=== PATIENT | male | born 1950 | race Caucasian/White ===

== ENCOUNTER 2021-06-12 09:00 | Outpatient (CLI) | payer MEDICARE ==
[~2021-06-12] VITALS: Ht 175.3 cm; Wt 106.6 kg
[2021-06-12] MEDS ORDERED: ASPI81TA52 PO (11:24)
[2021-06-12] MEDS ORDERED: FINA5TAB12 PO (11:24)
[2021-06-12] MEDS ORDERED: GEMF600T89 PO (11:24)
[2021-06-12] MEDS ORDERED: FLO0.4C PO (11:24)
[2021-06-12] MEDS ORDERED: SENN-93 PO (11:24)
[2021-06-12] MEDS ORDERED: ATOR40TA72 PO (11:24)
[2021-06-12] MEDS ORDERED: METF-1203 PO (11:24)
[2021-06-12] MEDS ORDERED: GABA300C PO (11:24)
[2021-06-12] MEDS ORDERED: OMEP20TA43 PO (11:24)
[2021-06-12] MEDS ORDERED: METO-395 PO (11:24)
[2021-06-12] MEDS ORDERED: TRIA1CAP6 PO (11:24)
[2021-06-12] MEDS ORDERED: LOSA50TA64 PO (11:24)
[2021-06-12 11:53] LABS: BASOPHILS % (AUTO) 0.5 % (0-1); EOSINOPHILS # (AUTO) 0.1 X10'3 (0-0.9); EOSINOPHILS % (AUTO) 2.4 % (0-6); LYMPHOCYTES # (AUTO) 1.5 X10'3 (1.1-4.8); LYMPHOCYTES % (AUTO) 24.8 % (21-51); MEAN CORPUSCULAR HGB CONC 33.7 g/dL (33.0-36.5); MEAN CORPUSCULAR VOLUME 92.1 FL (78-98); MEAN PLATELET VOLUME 9.4 FL (7.4-10.4); MONOCYTES # (AUTO) 0.6 X10'3 (0-0.9); NEUTROPHILS # (AUTO) 3.9 X10'3 (1.8-7.7); NEUTROPHILS % (AUTO) 63.3 % (42-75); PRE OP HEMATOCRIT 48.6 % (42.0-52.0); PRE OP HEMOGLOBIN 16.4 g/dL (14.0-17.9); PRE OP PLATELET COUNT 204 X10'3 (140-440); RED BLOOD COUNT 5.27 X10'6 (4.70-6.10)
[2021-06-12 12:05] LABS: PRE OP INR 1.1 INR; PRE OP PROTIME 11.1 SECONDS (9.0-12.0)
[2021-06-12 12:10] LABS: ALBUMIN 3.9 G/DL (3.4-5.0); ALBUMIN/GLOBULIN RATIO 1.3 (1.1-1.5); ALKALINE PHOSPHATASE 70 IU/L (46-116); BLOOD UREA NITROGEN 22 MG/DL (7-18); BUN/CREATININE RATIO 18.3 (5.4-32.0); CALCIUM 8.9 MG/DL (8.5-10.1); CHLORIDE 107 MMOL/L (99-107); PRE OP ALT 55 U/L (30-65); PRE OP ANION GAP 10 (8-16); PRE OP AST 30 U/L (10-37); PRE OP BILIRUB, TOTAL 0.5 MG/DL (0.0-1.0); PRE OP GLUCOSE 120 MG/DL (70-104); PRE OP SODIUM 141 MMOL/L (135-145); TOTAL CARBON DIOXIDE 23.7 MMOL/L (24-32); TOTAL PROTEIN 6.9 G/DL (6.4-8.2); eGFR 60 ML/MIN
[2021-06-18] MEDS ORDERED: ringers solution, lacted 1,000 ML IV SCH (05:00)
[2021-06-18] MEDS ORDERED: famotidine 20mg tablet PO ONE (05:30)
[2021-06-18] MEDS ORDERED: DOCUMENT DATE & TIME OF BETA-BLOCKER PO ONE (05:30)
[2021-06-18] MEDS ORDERED: diazepam 5mg tablet PO ONE (05:30)
[2021-06-18] MEDS ORDERED: oxymetazoline 15 ML nasal spray NS PRN (05:30)
[2021-06-18] MEDS ORDERED: cocaine 4% topical solution 4ml bottle ONE (07:13)
[2021-06-18] MEDS ORDERED: LIDOcaine 1% W/epiNEPHrine 1:100,000 20ml vial ONE (07:13)
[2021-06-18] MEDS ORDERED: oxymetazoline 15 ML nasal spray NS ONE (07:14)
[2021-06-18] MEDS ORDERED: mupirocin 2% ointment 22GM ONE (07:14)
--- NOTE | 2021-06-18 07:50 | NUR ---
PATIENT AND HIS CAME TO [facility]. DR ZAMBRANO MET WITH THE PATIENT AND DISCUSSED HIS CARDIAC HX. DR ZAMBRANO TRIED TO REACH DR ARMENTA REGARDING A MEDICAL CLEARANCE. DR ARMENTA WAS NOT ABLE TO BE REACHED. DR ZAMBRANO CANCELED THE PATIENTS SURGERY UNTIL HE CAN GET A CARDIAC CLEARANCE. PATIENT STAYED IN HIS WHEELCHAIR CLOTHED AND WAS NOT ASSESSED. THE PATIENT AND HIS WERE EDUCATED ON THE SITUATION AND I HELPED THEM BACK TO THEIR CAR.
== END 2021-06-12 23:00 | disposition home or self-care (01) ==
LOC: LAB 09:00 → PAS 06-18 07:38 → EDSTATUS 06-18 08:00 → PAS 06-18 09:00
PROVIDERS: ATTEND Otolaryngology
DX: Z01.812 Encounter for preprocedural laboratory examination (principal); Z20.822 Contact with and (suspected) exposure to COVID-19
CPT/HCPCS: 36415; 80053; 85025; 85576; 85610; 85730; 93005; U0003; U0005; J7120

== ENCOUNTER 2021-07-31 05:22 | Day surgery (SDC) | payer MEDICARE ==
[~2021-07-31] VITALS: Ht 175.3 cm; Wt 103.8 kg
[2021-07-31] VITALS (14 sets, daily range): BP systolic 129–178; BP diastolic 48–98
[~2021-07-31 05:22] MED LIST: ASPI81TA52 PO; ATOR40TA72 PO; FINA5TAB12 PO; FLO0.4C PO; GABA300C PO; GEMF600T89 PO; LOSA50TA64 PO; METF-1203 PO; METO-395 PO; OMEP20TA43 PO; SENN-93 PO; TRIA1CAP6 PO
[2021-07-31] MEDS ORDERED: NAPR220T67 PO (06:22)
[2021-07-31] MEDS ORDERED: Allergy (06:22)
[2021-07-31] MEDS ORDERED: normal saline 1,000 ML IV SCH (07:10)
[2021-07-31] MEDS ORDERED: diphenhydrAMINE 25mg capsule PO PRN (07:10)
[2021-07-31] MEDS ORDERED: LORazepam 0.5 MG tablet PO PRN (07:10)
[2021-07-31] MEDS ORDERED: MESSAGE TO PHARMACY PO ONE (07:45)
[2021-07-31] MEDS ORDERED: insulin Lispro (HumaLOG) vial - multi-dose SQ SCH (07:45)
[2021-07-31] MEDS ORDERED: dextrose 50%-water 50ml dispensing syringe IV PRN ×2 (07:45)
[2021-07-31] MEDS ORDERED: DEXTROSE 15 GM of carb/4 tabs (each vial/BOTTLE has 4 tablets) PO PRN ×2 (07:45)
[2021-07-31] MEDS ORDERED: glucagon, human recombinant 1mg kit SUBCUT PRN (07:45)
[2021-07-31] MEDS ORDERED: iohexol 300mg/ml 100ml inj. ONE (07:48)
[2021-07-31] MEDS ORDERED: midazolam 1 mg/ML 2ml injection ONE ×2 (07:48→08:38)
[2021-07-31] MEDS ORDERED: LIDOcaine 1% 30ml preserv. free vial ONE (07:48)
[2021-07-31] MEDS ORDERED: fentaNYL/PF 50MCG/1 ML 2ML syringe ONE (07:48)
[2021-07-31] MEDS ORDERED: nitroGLYCERIN 0.4mg SUBLingual tab SL PRN (08:00)
[2021-07-31 08:06] LABS: HEMOGLOBIN A1C 6.6 % (4.5-6.2)
[2021-07-31] MEDS ORDERED: HYDROmorphone 1 mg/ml syringe ONE ×2 (08:29→08:44)
[2021-07-31] MEDS ORDERED: normal saline 1000ml 1,000 ML IV SCH (09:45)
[2021-07-31] MEDS ORDERED: ondansetron/PF 4mg/2ml inj IV PRN (09:45)
[2021-07-31] MEDS ORDERED: HYDROcodone/acetaminophen 5mg/325mg tablet PO PRN (09:50)
[2021-07-31] MEDS ORDERED: OXAZEpam 15mg capsule PO PRN (09:50)
[2021-07-31] MEDS ORDERED: HYDROmorphone 1 mg/ml syringe IV ONE (10:00)
[2021-07-31] MEDS ORDERED: insulin glargine (Lantus) pen - multi-dose SQ SCH (21:00)
== END 2021-07-31 15:50 | disposition home or self-care (01) ==
LOC: SSTAY O 05:22
PROVIDERS: ATTEND Internal Medicine Cardiovascular Disease
DX: R94.39 Abnormal result of other cardiovascular function study (principal); I25.10 Atherosclerotic heart disease of native coronary artery without angina pectoris; E11.9 Type 2 diabetes mellitus without complications; M47.9 Spondylosis, unspecified; G47.33 Obstructive sleep apnea (adult) (pediatric); N40.1 Benign prostatic hyperplasia with lower urinary tract symptoms; G89.29 Other chronic pain; I10 Essential (primary) hypertension; E78.5 Hyperlipidemia, unspecified; J44.9 Chronic obstructive pulmonary disease, unspecified; F17.210 Nicotine dependence, cigarettes, uncomplicated; Z72.89 Other problems related to lifestyle; Z88.5 Allergy status to narcotic agent; Z79.899 Other long term (current) drug therapy
CPT/HCPCS: 36415; 82948; 83036; 83880; 93458; 99152; C1760; C1769; J1170; J1644; J2250; J3010; J3490; J7030; Q0163; Q9967; 99153; A4620; A6258; J1815

== ENCOUNTER 2021-09-03 05:49 | Day surgery (SDC) | payer MEDICARE ==
[2021-08-27 14:22] LABS: BASOPHILS % (AUTO) 0.5 % (0-1); EOSINOPHILS # (AUTO) 0.2 X10'3 (0-0.9); EOSINOPHILS % (AUTO) 2.7 % (0-6); LYMPHOCYTES # (AUTO) 1.4 X10'3 (1.1-4.8); LYMPHOCYTES % (AUTO) 23.8 % (21-51); MEAN CORPUSCULAR HEMOGLOBIN 31.4 PG (27.0-31.0); MEAN CORPUSCULAR HGB CONC 33.8 g/dL (33.0-36.5); MEAN CORPUSCULAR VOLUME 92.8 FL (78-98); MONOCYTES # (AUTO) 0.5 X10'3 (0-0.9); MONOCYTES % (AUTO) 8.3 % (2-12); NEUTROPHILS # (AUTO) 3.9 X10'3 (1.8-7.7); NEUTROPHILS % (AUTO) 64.7 % (42-75); PRE OP HEMATOCRIT 47.9 % (42.0-52.0); PRE OP HEMOGLOBIN 16.2 g/dL (14.0-17.9); PRE OP PLATELET COUNT 202 X10'3 (140-440); RED BLOOD COUNT 5.16 X10'6 (4.70-6.10); RED CELL DISTRIBUTION WIDTH 12.9 % (11.5-14.5)
[2021-08-27 14:34] LABS: ALBUMIN 3.6 G/DL (3.4-5.0); ALBUMIN/GLOBULIN RATIO 1.2 (1.1-1.5); ALKALINE PHOSPHATASE 74 IU/L (46-116); BLOOD UREA NITROGEN 21 MG/DL (7-18); BUN/CREATININE RATIO 16.7 (5.4-32.0); CALCIUM 8.9 MG/DL (8.5-10.1); CHLORIDE 109 MMOL/L (99-107); CREATININE 1.26 MG/DL (0.60-1.10); PRE OP ALT 38 U/L (30-65); PRE OP ANION GAP 7 (8-16); PRE OP AST 24 U/L (10-37); PRE OP BILIRUB, TOTAL 0.5 MG/DL (0.0-1.0); PRE OP GLUCOSE 195 MG/DL (70-104); PRE OP POTASSIUM 3.7 MMOL/L (3.4-5.1); PRE OP SODIUM 142 MMOL/L (135-145); TOTAL CARBON DIOXIDE 26.4 MMOL/L (24-32); TOTAL PROTEIN 6.5 G/DL (6.4-8.2); eGFR 56 ML/MIN
[2021-08-27 16:19] LABS: PRE OP INR 1.1 INR; PRE OP PROTIME 11.2 SECONDS (9.0-12.0)
[~2021-09-03] VITALS: Ht 175.3 cm; Wt 104.2 kg
[2021-09-03] VITALS (13 sets, daily range): BP systolic 146–197; BP diastolic 60–83
[~2021-09-03 05:49] MED LIST changes: +Allergy; +DOCUMENT DATE & TIME OF BETA-BLOCKER PO ONE; +NAPR220T67 PO; -TRIA1CAP6 PO; +TRIA1CAP88 PO; +diazepam 5mg tablet PO ONE; +famotidine 20mg tablet PO ONE; +oxymetazoline 15 ML nasal spray NS ONE; +ringers solution, lacted 1,000 ML IV SCH
[2021-09-03] MEDS ORDERED: cocaine 4% topical solution 4ml bottle ONE (06:38)
[2021-09-03] MEDS ORDERED: oxymetazoline 15 ML nasal spray NS ONE (06:38)
[2021-09-03] MEDS ORDERED: mupirocin 2% ointment 22GM ONE (06:38)
[2021-09-03] MEDS ORDERED: LIDOcaine 1% W/epiNEPHrine 1:100,000 20ml vial ONE (06:38)
[2021-09-03] MEDS ORDERED: fentaNYL/PF 50MCG/1 ML 2ML syringe ONE (07:59)
[2021-09-03] MEDS ORDERED: propofol inj 20 ML IV ONE (07:59)
[2021-09-03] MEDS ORDERED: midazolam 1 mg/ML 2ml injection ONE (07:59)
[2021-09-03] MEDS ORDERED: rocuronium 10mg/ml inj IV ONE (08:00)
[2021-09-03] MEDS ORDERED: labetalol 5mg/ml 20ml inj. IV PRN (08:05)
[2021-09-03] MEDS ORDERED: morphine 2 MG/ML inj. syringe IV PRN (08:05)
[2021-09-03] MEDS ORDERED: ondansetron/PF 4mg/2ml inj IV PRN (08:05)
[2021-09-03] MEDS ORDERED: morphine 4 MG/ML inj SYRINge IV PRN (08:05)
[2021-09-03] MEDS ORDERED: hydrALAZINE 20mg/ml inj. IV PRN (08:05)
[2021-09-03] MEDS ORDERED: ringers solution, lacted 1,000 ML IV SCH (08:05)
[2021-09-03] MEDS ORDERED: meperidine/PF 25mg/ml syringe IV PRN ×3 (08:05)
[2021-09-03] MEDS ORDERED: sevoflurane 250ml liquid IH ONE (08:38)
[2021-09-03] MEDS ORDERED: dexamethasone sod phosphate 4mg/ml inj. ONE (09:30)
[2021-09-03] MEDS ORDERED: ondansetron/PF 4mg/2ml inj ONE (10:33)
[2021-09-03] MEDS ORDERED: sugammadex 200mg/2ml injection IV ONE (10:43)
--- NOTE | 2021-09-03 10:55 | NUR ---
PT ARRIVED TO [facility]IA [facility], ACCOMPANIED BY DR FIELD-ANESTHESIA REPORT GIVEN, VSS, DENIES PAIN, SOME OLD BLOOD IN MOUTH-SXN USED, PT WAKING UP, COTTONOIDS IN PLACE-NO BLEEDING NOTED FROM [facility], NEURO CHECK INTACT.
[2021-09-03] MEDS ORDERED: salt irrigation nasal spray 45 ML SPRAY NS ONE (11:45)
--- NOTE | 2021-09-03 11:45 | NUR ---
COTTONOIDS REMOVED ORDERED-BLEEDING MINIMAL
--- NOTE | 2021-09-03 13:15 | NUR ---
NO CHANGES IN ASSESSMENT PT UP AND DRESSED, VSS, PAIN MINIMAL-MOSTLY BURNING IN THROAT, MUSTACHE DRSG IN PLACE WITH SOME DRAINAGE, GIVEN ALL INSTRUCTIONS FOR HOME CARE ALONG WITH SUPPLIES, PIV D/CD, TAKEN VIA W/C TO VEHICLE FOR TRANSP[facility]-STAYING IN [facility] FOR THE NIGHT.
== END 2021-09-03 13:15 | disposition home or self-care (01) ==
LOC: PAS 05:49
PROVIDERS: ATTEND Otolaryngology
DX: J34.2 Deviated nasal septum (principal); J34.3 Hypertrophy of nasal turbinates; J32.9 Chronic sinusitis, unspecified; J98.8 Other specified respiratory disorders; E11.9 Type 2 diabetes mellitus without complications; I10 Essential (primary) hypertension; F19.90 Other psychoactive substance use, unspecified, uncomplicated; Z79.899 Other long term (current) drug therapy; Z98.890 Other specified postprocedural states; Z79.01 Long term (current) use of anticoagulants; Z95.5 Presence of coronary angioplasty implant and graft; K21.9 Gastro-esophageal reflux disease without esophagitis; M19.90 Unspecified osteoarthritis, unspecified site; Z72.89 Other problems related to lifestyle; Z88.6 Allergy status to analgesic agent
CPT/HCPCS: 30140; 30520; 31255; 31256; 36415; 61782; 80053; 82948; 85025; 85576; 85610; 85730; A6402; C9250; J0360; J1100; J2175; J2250; J2405; J2704; J3010; J3490; J7030; J7040; J7120; U0003; Z7506; Z7508; Z7512; 88300; 88304; 88311; A4618; A6449; A7000